=== PATIENT | female | born 1995 | race Caucasian/White ===

== ENCOUNTER 2017-07-08 11:32 | Emergency (ER) | payer MEDICAID, OTHER ==
[~2017-07-08] VITALS: Ht 160 cm; Wt 54.9 kg
[~2017-07-08 11:32] MED LIST: [UNRECOGNIZED DRUG - REMARK]
[2017-07-08 11:42] VITALS: BP 108/72
[2017-07-08] MEDS ORDERED: DEXAMETHASONE 4 MG TABLET ONE (12:56)
[2017-07-08] MEDS ORDERED: DIPHENHYDRAMINE 25 MG CAPSULE ONE (12:56)
[2017-07-08] MEDS ORDERED: DEXAMETHASONE 4 MG TABLET PO ONE (13:00)
[2017-07-08] MEDS ORDERED: DIPHENHYDRAMINE 25 MG CAPSULE PO ONE (13:00)
== END 2017-07-08 13:47 | disposition home or self-care (01) ==
LOC: ED 13:41
DX: T78.40XA Allergy, unspecified, initial encounter (principal)
CPT/HCPCS: 99283; Q0163

== ENCOUNTER → 2017-09-09 | Outpatient (CLI) | payer OTHER | LOC: PETCFH 12:24 | PROVIDERS: ATTEND Physician Assistant Medical | DX: R10.13 Epigastric pain (principal); F41.9 Anxiety disorder, unspecified | CPT/HCPCS: 78227; A9537 ==

== ENCOUNTER 2017-10-28 08:05 | Day surgery (SDC) | payer OTHER ==
[2017-10-26 14:18] VITALS: BP 110/71
[~2017-10-28] VITALS: Ht 160 cm; Wt 54.5 kg
[~2017-10-28 08:05] MED LIST changes: +L-NO1TBD4 PO; +OMEP40CA6 PO; +TRAM50TA2 PO; +VENL37.57 PO
[2017-10-28] MEDS ORDERED: LACTATED RINGERS 1,000 ML IV SCH (08:34)
[2017-10-28 09:06] LABS: HCG UR SG 1.031 (1.003-1.030)
[2017-10-28] MEDS ORDERED: MIDAZOLAM 1 MG/ML, 2ML ONE ×2 (09:49→11:12)
[2017-10-28] MEDS ORDERED: FENTANYL PF 250 MCG/5ML ONE (09:49)
[2017-10-28] MEDS ORDERED: OXYcodone IR 5MG TABLET ONE (09:52)
[2017-10-28] MEDS ORDERED: FAMOTIDINE 20 MG/2 ML ONE (09:52)
[2017-10-28] MEDS ORDERED: ACETAMINOPHEN 325 MG TABLET PO PRN (10:00)
[2017-10-28] MEDS ORDERED: OXYcodone 5 MG/5 ML ORAL.SOL UDC PO PRN (10:00)
[2017-10-28] MEDS ORDERED: OXYcodone IR 5MG TABLET PO ONE (10:00)
[2017-10-28] MEDS ORDERED: LORazepam 2 MG/ML, 1ML IVPush PRN (10:00)
[2017-10-28] MEDS ORDERED: ONDANSETRON 2MG/ML, 2ML IVPush PRN (10:00)
[2017-10-28] MEDS ORDERED: FAMOTIDINE 20 MG/2 ML IVPush ONE (10:00)
[2017-10-28] MEDS ORDERED: PROMETHAZINE 25 MG/ML, 1ML IV PRN (10:00)
[2017-10-28] MEDS ORDERED: HYDROcodone/APAP 7.5-325MG/15ML UDC PO PRN (10:00)
[2017-10-28] MEDS ORDERED: MEPERIDINE/PF 25MG/0.5ML IVPush PRN (10:00)
[2017-10-28] MEDS ORDERED: EPINEPHRINE 1 MG/ML, 1ML ONE (10:01)
[2017-10-28] MEDS ORDERED: BUPIVACAINE/PF 0.5% ONE (10:01)
[2017-10-28] MEDS ORDERED: PHENYLEPHRINE 10 MG/ML ONE (10:08)
[2017-10-28] MEDS ORDERED: DEXAMETHASONE 4 MG/ML, 1ML ONE (10:08)
[2017-10-28] MEDS ORDERED: GLYCOPYRROLATE 0.2MG/1ML, 5ML ONE (10:08)
[2017-10-28] MEDS ORDERED: ONDANSETRON 2MG/ML, 2ML ONE (10:08)
[2017-10-28] MEDS ORDERED: PROPOFOL 10 MG/ML, 20ML ONE (10:08)
[2017-10-28] MEDS ORDERED: KETOROLAC 30 MG/1 ML ONE (10:08)
[2017-10-28] MEDS ORDERED: SUCCINYLCHOLINE 20 MG/ML, 10ML ONE (10:08)
[2017-10-28] MEDS ORDERED: CEFAZOLIN 1,000 MG ONE (10:08)
[2017-10-28] MEDS ORDERED: EPHEDRINE 50 MG/ML, 1ML ONE (10:08)
[2017-10-28] MEDS ORDERED: ROCURONIUM 10 MG/ML,10ML ONE (10:08)
[2017-10-28] MEDS ORDERED: BUPIVACAINE/PF-EPI 0.5% 1:200K INFIL ONE (10:37)
[2017-10-28] MEDS ORDERED: FENTANYL PF 100 MCG/2ML ONE ×2 (11:00→11:12)
[2017-10-28] MEDS ORDERED: MEPERIDINE/PF 25MG/0.5ML ONE (11:01)
[2017-10-28] MEDS ORDERED: OXYcodone 5 MG/5 ML ORAL.SOL UDC ONE (11:01)
[2017-10-28] MEDS: FENTANYL PF 100 MCG/2ML IV PRN ×4 (11:06→11:35)
[2017-10-28] MEDS: MIDAZOLAM 1 MG/ML, 2ML IV PRN ×2 (11:12→11:32)
[2017-10-28] MEDS ORDERED: LORazepam 2 MG/ML, 1ML ONE (11:52)
== END 2017-10-28 15:15 | disposition home or self-care (01) ==
LOC: OUT 08:05
PROVIDERS: ATTEND Colon & Rectal Surgery
DX: K80.10 Calculus of gallbladder with chronic cholecystitis without obstruction (principal); K21.9 Gastro-esophageal reflux disease without esophagitis; F32.9 Major depressive disorder, single episode, unspecified; Z88.6 Allergy status to analgesic agent; Z79.899 Other long term (current) drug therapy; F41.9 Anxiety disorder, unspecified; Z98.890 Other specified postprocedural states; Z83.3 Family history of diabetes mellitus; Z80.49 Family history of malignant neoplasm of other genital organs
CPT/HCPCS: 47562; 81025; 88304; A4649; J0171; J0330; J0690; J1100; J1885; J2060; J2175; J2250; J2370; J2405; J2704; J3010; J3490; J7120; S0028